=== PATIENT | male | born 1990 | race Caucasian/White ===

== ENCOUNTER 2023-12-17 17:12 | Emergency (ER) | payer SELFPAY ==
[~2023-12-17] VITALS: Ht 167.6 cm; Wt 82.0 kg
[2023-12-17 17:14] VITALS: BP 127/73; PULSE 108; RESP 16; TEMP 99.3; O2SAT 96
[2023-12-17] MEDS ORDERED: CEPH500T MT (17:48)
[2023-12-17] MEDS ORDERED: VALA100044 MT (17:48)
== END 2023-12-17 18:01 | disposition home or self-care (01) ==
LOC: ER 17:12
DX: R21 Rash and other nonspecific skin eruption (principal)
CPT/HCPCS: 99283